=== PATIENT | male | born 1985 | race Caucasian/White ===

== ENCOUNTER 2020-04-30 14:23 | Emergency (ER) | payer OTHER, SELFPAY ==
[2020-04-30 14:41] VITALS: PULSE 61; RESP 16; TEMP 36.4; O2SAT 98; BMI 32.5
[2020-04-30 15:30] VITALS: BP 129/80; PULSE 54; RESP 18; TEMP 37.1; O2SAT 100
[2020-04-30 15:55] VITALS: BP 118/70; PULSE 58; RESP 16; TEMP 37.1; O2SAT 100
--- NOTE | 2020-04-30 15:57 | ED_ITS ---
HPI - Abdominal Pain General Chief Complaint: Abdominal Pain <Sierra Berrios NP - Last Filed: 04/30/20 17:03> Stated Complaint: ABD PAIN <Sierra Berrios NP - Last Filed: 04/30/20 17:03> Time Seen by Provider: 04/30/20 15:46 <Sierra Berrios NP - Last Filed: 04/30/20 17:03> Source: patient <Sierra Berrios NP - Last Filed: 04/30/20 17:03> Mode of arrival: ambulatory <Sierra Berrios NP - Last Filed: 04/30/20 17:03> Limitations: no limitations <Sierra Berrios NP - Last Filed: 04/30/20 17:03> History of Present Illness HPI narrative: 34-year-old male previously healthy here with intermittent abdominal pain for the last few weeks. Describes the pain as cramping. Intermittently associated with diarrhea. Occasionally he has an episode of bloody diarrhea. He tells me he may have several episodes of bloody diarrhea in a week but never more then one in a day. Today he had 3 episodes of bloody diarrhea filling the toilet bowl. No vomiting. No fevers, chills, body aches, urinary symptoms. No family history of IBD. No recent travel or sick contact. <Sierra Berrios NP - Last Filed: 04/30/20 17:03> MD elicited complaint: abdominal pain <ARAVIND Milner Last Filed: 04/30/20 17:03> Pertinent past history: none <ARAVIND Milner Last Filed: 04/30/20 17:03> Onset (ago): week(s) <ARAVIND Milner Last Filed: 04/30/20 17:03> Pain Consistency: intermittent <ARAVIND Milner Last Filed: 04/30/20 17:03> Location: diffuse <ARAVIND Milner Last Filed: 04/30/20 17:03> Severity: mild <ARAVIND Milner Last Filed: 04/30/20 17:03> Quality: cramping <Sierra Berrios NP - Last Filed: 04/30/20 17:03> Radiation: none <Sierra Berrios NP - Last Filed: 04/30/20 17:03> Migration to: no migration <Sierra Berrios NP - Last Filed: 04/30/20 17:03> Exacerbating factors: nothing <Sierra Berrios NP - Last Filed: 04/30/20 17:03> Relieving factors: nothing <Sierra Berrios NP - Last Filed: 04/30/20 17:03> Associated symptoms: denies other symptoms <Sierra Berrios NP - Last Filed: 04/30/20 17:03> Related Data Home Medications: Previous Rx's Medication Instructions Recorded dicyclomine 10 mg PO TID PRN #10 cap 04/30/20 <Sierra Berrios NP - Last Filed: 04/30/20 17:03> Allergies/Adverse Reactions: Allergies Allergy/AdvReac Type Severity Reaction Status Date / Time No Known Allergies Allergy Verified 04/30/20 14:43 <Sierra Berrios NP - Last Filed: 04/30/20 17:03> Review of Systems Review of Systems Yes all other systems are reviewed and are negative <Sierra Berrios NP - Last Filed: 04/30/20 17:03> Constitutional: Reports no additional constitutional complaints, Denies body ache(s), Denies chills, Denies fever(s), Denies headache(s) and Denies weakness <Sierra Berrios NP - Last Filed: 04/30/20 17:03> Eyes: Reports no additional eye complaints and Denies change in vision <Sierra Berrios NP - Last Filed: 04/30/20 17:03> Reports system reviewed and no additional complaints, except as documented, Denies dizziness, Denies headache(s), Denies nasal congestion, Denies nasal discharge and Denies neck pain <Sierra Berrios NP - Last Filed: 04/30/20 17:03> Cardiovascular: Reports no additional cardiovascular complaints, Denies chest pain, Denies leg edema and Denies dyspnea <Sierra Berrios NP - Last Filed: 04/30/20 17:03> Respiratory: Reports no additional respiratory complaints, Denies cough and Denies dyspnea <Sierra Berrios NP - Last Filed: 04/30/20 17:03> Gastrointestinal: Reports no additional gastrointestinal complaints, Reports abdominal pain, Reports hematochezia, Reports diarrhea, Denies nausea and Denies vomiting <Sierra Berrios NP - Last Filed: 04/30/20 17:03> Genitourinary: Denies urinary incontinence <Sierra Berrios NP - Last Filed: 04/30/20 1 7:03> Musculoskeletal: Reports no additional musculoskeletal complaints, Denies back pain, Denies arthralgias, Denies joint swelling, Denies neck pain, Denies numbness and Denies tingling <Sierra Berrios NP - Last Filed: 04/30/20 17:03> Skin/Breast: Reports system reviewed and no additional complaints, except as docu and Denies rash <Sierra Berrios NP - Last Filed: 04/30/20 17:03> Reports system reviewed and no additional complaints, except as documented, Denies Abnormal speech present, Denies dizziness, Denies h eadache(s), Denies numbness, Denies tingling and Denies weakness <Sierra Berrios NP - Last Filed: 04/30/20 17:03> Physical Exam Vital Signs: Vital Signs: Last Vital Signs Temp 98.7 F 04/30/20 15:55 Pulse 58 04/30/20 15:55 Resp 16 04/30/20 15:55 BP 118/70 04/30/20 15:55 Pulse Ox 100 04/30/20 15:55 Body Mass Index 32.5 <Sierra Berrios NP - Last Filed: 04/30/20 17:03> Vital Signs: Last Vital Signs Temp 98.7 F 04/30/20 15:55 Pulse 58 04/30/20 15:55 Resp 16 04/30/20 15:55 BP 118/70 04/30/20 15:55 Pulse Ox 100 04/30/20 15:55 Body Mass Index 32.5 <Ralf Zamudio MD - Last Filed: 04/30/20 17:12> Const: General: cooperative, healthy appearing, comfortable and no acute distress <Sierra Berrios NP - Last Filed: 04/30/20 17:03> Orientation/consciousness: patient oriented x3 <Sierra Berrios NP - Last Filed: 04/30/20 17:03> Limitations: no limitations <Sierra Berrios NP - Last Filed: 04/30/20 17:03> HENMT: Head: Yes normal to inspection <Sierra Berrios NP - Last Filed: 04/30/20 17:03> Ears: hearing grossly normal bilaterally <Sierra Berrios NP - Last Filed: 04/30/20 17:03> General nose exam: Normal external nose present <Sierra Berrios NP - Last Filed: 04/30/20 17:03> Face and sinus: Yes normal facial exam <Sierra Berrios NP - Last Filed: 04/30/20 17:03> Mouth: Normal oral and palatal mucosa present <Sierra Berrios NP - Last Filed: 04/30/20 17:03> Throat: Yes posterior oropharynx normal <Sierra Berrios NP - Last Filed: 04/30/20 17:03> Eyes: General: appearance normal, both eyes and all related structures <Sierra Berrios NP - Last Filed: 04/30/20 17:03> Pupils: Equal, round and reactive pupils present <Sierra Berrios NP - Last Filed: 04/30/20 17:03> Neck: Neck: Yes normal visual inspection <Sierra Berrios NP - Last Filed: 04/30/20 17:03> Chest: Chest palpation & inspection: normal inspection of the chest <Sierra Berrios NP - Last Filed: 04/30/20 17:03> Resp: Effort & Inspection: normal respiratory effort <Sierra Berrios NP - Last Filed: 04/30/20 17:03> Auscultation: clear to auscultation bilaterally <Sierra Berrios NP - Last Filed: 04/30/20 17:03> Cardio: Rate: regular rate <Sierra Berrios NP - Last Filed: 04/30/20 17:03> Rhythm: regular rhythm <Sierra Berrios NP - Last Filed: 04/30/20 17:03> Peripheral pulses: Peripheral pulses 2+ throughout <Sierra Berrios NP - Last Filed: 04/30/20 17:03> GI: 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: 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 <Sierra Berrios NP - Last Filed: 04/30/20 17:03> Inspection: Yes normal to inspection <Sierra Berrios NP - Last Filed: 04/30/20 17:03> Palpation (GI): Soft to palpation and nontender <Sierra Berrios NP - Last Filed: 04/30/20 17:03> Auscultation: normal bowel sounds <Sierra Berrios NP - Last Filed: 04/30/20 17:03> Rectal Exam - Male: Yes normal sphincter tone, Yes External hemorrhoid(s) presen t and Yes other (Only able to obtain minimal sample, mucousy brown stool) <Sierra Berrios NP - Last Filed: 04/30/20 17:03> Back/Spine/Pelvis: Thoracic/Lumbar Spine: thoracic and lumbar spine normal to inspection <Sierra Berrios NP - Last Filed: 04/30/20 17:03> Skin: General skin exam: no rashes or lesions noted <Sierra Berrios NP - Last Filed: 04/30/20 17:03> Neuro: General: patient oriented x3, no focal motor deficits and normal sensation to monofilament <Sierra Berrios NP - Last Filed: 04/30/20 17:03> Cranial nerves: Yes Equal, round and reactive pupils present <Sierra Berriso NP - Last Filed: 04/30/20 17:03> Cognition (Neuro): normal cognition <Sierra Berrios NP - Last Filed: 04/30/20 17:03> Speech: No Abnormal speech present <ARAVIND Milner Last Filed: 04/30/20 17:03> Gait exam (Neuro): Normal gait present <Sierra Berrios NP - Last Filed: 04/30/20 17:03> Motor exam (neuro): 5/5 motor strength present throughout <Sierra Berrios NP - Last Filed: 04/30/20 17:03> Extrem: General: Yes normal to inspection <Sierra Berrios NP - Last Filed: 04/30/20 17:03> Course Course Course Narrative: 34-year-old male previously healthy here with some intermittent abdominal pain described as cramping with associated diarrhea. Occasionally has blood in his stool. Today had 3 episodes. On arrival the patient has some mild diffuse tenderness with no focal tenderness. His rectal exam showed mucousy brown stool. Heme negative. +external hemorrhoids and tenderness. He is afebrile. Stable vital signs. Labs are unremarkable. Patient was monitored in the emergency department for 3 hours with no additional episodes of bloody diarrhea. His pain was improved with some p.o. Bentyl. We discussed him following up with GI outpatient. Reviewed worrisome signs and symptoms and when to return to the emergency department. Comfortable discharge home. <Sierra Berrios NP - Last Filed: 04/30/20 17:03> 1709: I, Dr. Ralf Zamudio, was available for consultation by the APC while the patient was in the emergency department. I reviewed the APC's findings, I was available to supervise the management of the patient, and I agree with the treatment and plan. Further, I agree with the controlled substance prescriptions(s) and/or order(s) as written by the APC, if any. <Ralf Zamudio MD - Last Filed: 04/30/20 17:12> MDM - Abdominal Pain MDM Narrative Medical decision making narrative: Less likely underlying IBD with only occasional symptoms, no weight loss, normal labs. Less likely infectious colitis with no leukocytosis, no fever. Less likely diverticulitis no focal pain no vomiting no fever <Sierra Berrios NP - Last Filed: 04/30/20 17:03> Lab Data Result diagrams: : 04/30/20 16:02 04/30/20 16:02 <Sierra Berrios, SSIS SSRS DEVELOPER - Last Filed: 04/30/20 17:03> Labs: Lab Results 04/30/20 04/30/20 04/30/20 Range/Units 15:59 15:59 16:02 WBC 7.6 (4.8-10.8) X10*3/uL RBC 4.69 (4.60-5.80) X10*6/uL Hgb 13.8 L (14.0-18.0) g/dl Hct 39.9 L (42-52) % MCV 85.1 (80-98) fL MCH 29.4 (27.0-33.0) pg MCHC 34.6 (31.0-36.0) g/dl RDW 12.0 (11.0-16.0) % Plt Count 254 (160-400) X10*3/uL MPV 9.6 (9.4-12.4) fL Immature Gran % (Auto) 0.3 (0.0-0.4) % Neut % (Auto) 64.4 (45-73) % Lymph % (Auto) 26.5 (20-40) % [place] % (Auto) 7.0 (2-11) % Eos % (Auto) 1.3 (0-4) % Baso % (Auto) 0.5 (0-2) % Lymph # (Auto) 2.0 (1.2-4.9) X10*3/uL [place] # (Auto) 0.5 (0.1-1.2) X10*3/uL Eos # (Auto) 0.1 (0.0-0.4) X10*3/uL Baso # (Auto) 0.0 (0.0-0.2) X10*3/uL Abs Immat Gran (auto) 0.02 (0.00-0.03) X10*3/uL Absolute Neuts (auto) 4.9 (2.0-8.3) X10*3/uL Absolute Nucleated RBC 0.000 (0.0-0.012) X10*3/uL Nucleated RBC % (auto) 0.0 (0.0-0.2) /100WBC PT (10.8-13.0) SEC INR (0.9-1.1) Sodium (135-145) mmol/L Potassium (3.3-5.1) mmol/l Chloride (96-108) mmol/L Carbon Dioxide (22-29) mmol/L Anion Gap (12-20) BUN (9-16) mg/dL Creatinine (0.5-1.4) mg/dL Estim Creat Clear Calc Estimated GFR Random Glucose (60-115) mg/dL Calcium (8.4-10.2) mg/dL Urine Color YELLOW Urine Appearance CLEAR Urine pH 6.0 (5.0-8.0) Ur Specific [place] 1.025 (1.005-1.025) Urine Protein NEG (NEG-TRACE) MG/DL Urine Glucose (UA) NEG (NEG) MG/DL Urine Ketones NEG (NEG) MG/DL Urine Blood NEG (NEG) Urine Nitrite NEG (NEG) Ur Leukocyte Esterase NEG (NEG) Stool Occult Blood NEG (NEG) 04/30/20 04/30/20 Range/Units 16:02 16:02 WBC (4.8-10.8) X10*3/uL RBC (4.60-5.80) X10*6/uL Hgb (14.0-18.0) g/dl Hct (42-52) % MCV (80-98) fL MCH (27.0-33.0) pg MCHC (31.0-36.0) g/dl RDW (11.0-16.0) % Plt Count (160-400) X10*3/uL MPV (9.4-12.4) fL Immature Gran % (Auto) (0.0-0.4) % Neut % (Auto) (45-73) % Lymph % (Auto) (20-40) % [place] % (Auto) (2-11) % Eos % (Auto) (0-4) % Baso % (Auto) (0-2) % Lymph # (Auto) (1.2-4.9) X10*3/uL [place] # (Auto) (0.1-1.2) X10*3/uL Eos # (Auto) (0.0-0.4) X10*3/uL Baso # (Auto) (0.0-0.2) X10*3/uL Abs Immat Gran (auto) (0.00-0.03) X10*3/uL Absolute Neuts (auto) (2.0-8.3) X10*3/uL Absolute Nucleated RBC (0.0-0.012) X10*3/uL Nucleated RBC % (auto) (0.0-0.2) /100WBC PT 12.9 (10.8-13.0) SEC INR 1.1 (0.9-1.1) Sodium 142 (135-145) mmol/L Potassium 3.6 (3.3-5.1) mmol/l Chloride 104 (96-108) mmol/L Carbon Dioxide 32 H (22-29) mmol/L Anion Gap 10 L (12-20) BUN 11 (9-16) mg/dL Creatinine 1.09 (0.5-1.4) mg/dL Estim Creat Clear Calc 121.7 Estimated GFR > 60 Random Glucose 91 (60-115) mg/dL Calcium 8.8 (8.4-10.2) mg/dL Urine Color Urine Appearance Urine pH (5.0-8.0) Ur Specific [place] (1.005-1.025) Urine Protein (NEG-TRACE) MG/DL Urine Glucose (UA) (NEG) MG/DL Urine Ketones (NEG) MG/DL Urine Blood (NEG) Urine Nitrite (NEG) Ur Leukocyte Esterase (NEG) Stool Occult Blood (NEG) <Sierra Berrios NP - Last Filed: 04/30/20 17:03> Lab Results 04/30/20 04/30/20 04/30/20 Range/Units 15:59 15:59 16:02 WBC 7.6 (4.8-10.8) X10*3/uL RBC 4.69 (4.60-5.80) X10*6/uL Hgb 13.8 L (14.0-18.0) g/dl Hct 39.9 L (42-52) % MCV 85.1 (80-98) fL MCH 29.4 (27.0-33.0) pg MCHC 34.6 (31.0-36.0) g/dl RDW 12.0 (11.0-16.0) % Plt Count 254 (160-400) X10*3/uL MPV 9.6 (9.4-12.4) fL Immature Gran % (Auto) 0.3 (0.0-0.4) % Neut % (Auto) 64.4 (45-73) % Lymph % (Auto) 26.5 (20-40) % [place] % (Auto) 7.0 (2-11) % Eos % (Auto) 1.3 (0-4) % Baso % (Auto) 0.5 (0-2) % Lymph # (Auto) 2.0 (1.2-4.9) X10*3/uL [place] # (Auto) 0.5 (0.1-1.2) X10*3/uL Eos # (Auto) 0.1 (0.0-0.4) X10*3/uL Baso # (Auto) 0.0 (0.0-0.2) X10*3/uL Abs Immat Gran (auto) 0.02 (0.00-0.03) X10*3/uL Absolute Neuts (auto) 4.9 (2.0-8.3) X10*3/uL Absolute Nucleated RBC 0.000 (0.0-0.012) X10*3/uL Nucleated RBC % (auto) 0.0 (0.0-0.2) /100WBC PT (10.8-13.0) SEC INR (0.9-1.1) Sodium (135-145) mmol/L Potassium (3.3-5.1) mmol/l Chloride (96-108) mmol/L Carbon Dioxide (22-29) mmol/L Anion Gap (12-20) BUN (9-16) mg/dL Creatinine (0.5-1.4) mg/dL Estim Creat Clear Calc Estimated GFR Random Glucose (60-115) mg/dL Calcium (8.4-10.2) mg/dL Urine Color YELLOW Urine Appearance CLEAR Urine pH 6.0 (5.0-8.0) Ur Specific [place] 1.025 (1.005-1.025) Urine Protein NEG (NEG-TRACE) MG/DL Urine Glucose (UA) NEG (NEG) MG/DL Urine Ketones NEG (NEG) MG/DL Urine Blood NEG (NEG) Urine Nitrite NEG (NEG) Ur Leukocyte Esterase NEG (NEG) Stool Occult Blood NEG (NEG) 04/30/20 04/30/20 Range/Units 16:02 16:02 WBC (4.8-10.8) X10*3/uL RBC (4.60-5.80) X10*6/uL Hgb (14.0-18.0) g/dl Hct (42-52) % MCV (80-98) fL MCH (27.0-33.0) pg MCHC (31.0-36.0) g/dl RDW (11.0-16.0) % Plt Count (160-400) X10*3/uL MPV (9.4-12.4) fL Immature Gran % (Auto) (0.0-0.4) % Neut % (Auto) (45-73) % Lymph % (Auto) (20-40) % [place] % (Auto) (2-11) % Eos % (Auto) (0-4) % Baso % (Auto) (0-2) % Lymph # (Auto) (1.2-4.9) X10*3/uL [place] # (Auto) (0.1-1.2) X10*3/uL Eos # (Auto) (0.0-0.4) X10*3/uL Baso # (Auto) (0.0-0.2) X10*3/uL Abs Immat Gran (auto) (0.00-0.03) X10*3/uL Absolute Neuts (auto) (2.0-8.3) X10*3/uL Absolute Nucleated RBC (0.0-0.012) X10*3/uL Nucleated RBC % (auto) (0.0-0.2) /100WBC PT 12.9 (10.8-13.0) SEC INR 1.1 (0.9-1.1) Sodium 142 (135-145) mmol/L Potassium 3.6 (3.3-5.1) mmol/l Chloride 104 (96-108) mmol/L Carbon Dioxide 32 H (22-29) mmol/L Anion Gap 10 L (12-20) BUN 11 (9-16) mg/dL Creatinine 1.09 (0.5-1.4) mg/dL Estim Creat Clear Calc 121.7 Estimated GFR > 60 Random Glucose 91 (60-115) mg/dL Calcium 8.8 (8.4-10.2) mg/dL Urine Color Urine Appearance Urine pH (5.0-8.0) Ur Specific [place] (1.005-1.025) Urine Protein (NEG-TRACE) MG/DL Urine Glucose (UA) (NEG) MG/DL Urine Ketones (NEG) MG/DL Urine Blood (NEG) Urine Nitrite (NEG) Ur Leukocyte Esterase (NEG) Stool Occult Blood (NEG) <Ralf Zamudio MD - Last Filed: 04/30/20 17:12> Discharge Plan Discharge Clinical Impression: Bright red rectal bleeding <Sierra Berrios NP - Last Filed: 04/30/20 17:03> Patient Disposition: Home, Self-Care <Sierra Berrios NP - Last Filed: 04/30/20 17:03> Instructions: Rectal Bleeding (ED) <Sierra Berrios NP - Last Filed: 04/30/20 17:03> Additional Instructions: Call GI tomorrow to get set up with an appointment Return for weakness, dizziness, vomiting blood. <Sierra Berrios NP - Last Filed: 04/30/20 17:03> Prescriptions: New dicyclomine 10 mg capsule 10 mg PO TID PRN (Reason: abdominal discomfort) Qty: 10 RF: 0 <Sierra Berrios NP - Last Filed: 04/30/20 17:03> Referrals: Xochitl Owens MD [Physician] - 2 days <Sierra Berrios NP - Last Filed: 04/30/20 17:03> Stand Alone Forms: Work/School Release <Sierra Berrios NP - Last Filed: 04/30/20 17:03> Discharge Date/Time: 04/30/20 17:07 <Sierra Berrios NP - Last Filed: 04/30/20 17:03> PMFSH Past Medical History Attestation statement: The following information was validated with the patient. <Sierra Berrios NP - Last Filed: 04/30/20 17:03> Source: nursing notes reviewed <Sierra Berrios NP - Last Filed: 04/30/20 17:03> Social History Social History: Social History Alcohol intake: current Alcohol intake frequency: a few times a week Smoking Status: Current every day smoker Use of substances other than those prescribed or required for medical reasons: Yes Substance Use Type: Marijuana Advance Directives: No Advance Directives Information Provided: Yes <Sierra Brerios NP - Last Filed: 04/30/20 17:03>
[2020-04-30] MEDS: Dicyclomine HCl 10 MG CAPSULE PO (16:11)
[2020-04-30 16:13] LABS: OBS Int Ctl Valid YES; OBS1 NEG (NEG)
[2020-04-30 16:13] LABS: Basophils Percent Auto 0.5 % (0-2); Eosinophils Absolute Auto 0.1 X10*3/uL (0.0-0.4); Eosinophils Percent Auto 1.3 % (0-4); Hematocrit 39.9 % (42-52); Hemoglobin 13.8 g/dl (14.0-18.0); Imm Gran Abs Auto 0.02 X10*3/uL (0.00-0.03); Imm Gran Pct Auto 0.3 % (0.0-0.4); Lymphocytes Percent Auto 26.5 % (20-40); Mean Corpuscular HGB Conc 34.6 g/dl (31.0-36.0); Mean Corpuscular Hemoglobin 29.4 pg (27.0-33.0); Mean Corpuscular Volume 85.1 fL (80-98); Mean Platelet Volume 9.6 fL (9.4-12.4); Monocytes Absolute Auto 0.5 X10*3/uL (0.1-1.2); Neutrophils Absolute Auto 4.9 X10*3/uL (2.0-8.3); Neutrophils Percent Auto 64.4 % (45-73); Platelet Count 254 X10*3/uL (160-400); Red Blood Count 4.69 X10*6/uL (4.60-5.80); White Blood Count 7.6 X10*3/uL (4.8-10.8)
[2020-04-30 16:14] LABS: MANUAL DIFF FLAG NO
[2020-04-30 16:16] LABS: Glucose Urine UA NEG (NEG); Leukocyte Esterase Urine NEG (NEG); Nitrite Urine NEG (NEG); Specific Gravity - Urine 1.025 (1.005-1.025); Urine Blood NEG (NEG); Urine Ketones NEG (NEG); Urine Protein NEG (NEG-TRACE)
[2020-04-30 16:18] LABS: Appearance Urine CLEAR; Color Urine YELLOW
[2020-04-30 16:19] LABS: INTERNATIONAL NORM RATIO 1.1 (0.9-1.1); Prothrombin Time 12.9 SEC (10.8-13.0)
[2020-04-30 16:49] LABS: Anion Gap 10 (12-20); Blood Urea Nitrogen 11 mg/dL (9-16); Calcium 8.8 mg/dL (8.4-10.2); Carbon Dioxide 32 mmol/L (22-29); Chloride 104 mmol/L (96-108); Creatinine Clr Calc Pharmacy 121.7; Estimated Glomerular Filt Rate > 60; Glucose Random 91 mg/dL (60-115); Potassium 3.6 mmol/l (3.3-5.1); Sodium 142 mmol/L (135-145)
--- NOTE | 2020-04-30 17:06 | PC.NURSE ---
reports improved pain
== END 2020-04-30 17:07 | disposition home or self-care (01) ==
PROVIDERS: Nurse Practitioner Family; Emergency Provider Emergency Medicine Emergency Medical Services
DX: K62.5 Hemorrhage of anus and rectum (principal); R10.9 Unspecified abdominal pain; F17.200 Nicotine dependence, unspecified, uncomplicated; Z71.6 Tobacco abuse counseling; F12.90 Cannabis use, unspecified, uncomplicated
CPT/HCPCS: 36415; 80048; 81003; 82272; 85025; 85610; 99283; 99284

== ENCOUNTER 2020-05-14 16:47 | Outpatient (REF) | payer OTHER, SELFPAY | END 2020-05-14 16:48 | disposition home or self-care (01) | LOC: HO.LAB 16:47 | PROVIDERS: Visit Provider Internal Medicine | DX: Z20.828 Contact with and (suspected) exposure to other viral communicable diseases (principal) | CPT/HCPCS: C9803; U0003 ==

== ENCOUNTER 2020-12-01 14:34 | Emergency (ER) | payer OTHER, SELFPAY ==
[2020-12-01 14:35] VITALS: BP 147/78; PULSE 74; RESP 18; TEMP 36.8; O2SAT 100; BMI 33.9
--- NOTE | 2020-12-01 15:19 | ED.HA ---
HPI - Headache General Chief Complaint: Headache Stated Complaint: headache Time Seen by Provider: 12/01/20 15:02 Source: patient Mode of arrival: ambulatory Limitations: no limitations History of Present Illness HPI Narrative: 35-year-old male with chronic headaches presents with headache that started on Thursday, states that this headache has been unrelieved by [id number] medications, Tylenol, Motrin, Aleve, and rest. To the longest headache he has ever had. Does not report any fevers, chills, chest pain or pressure, palpitations, loss of balance, changes in vision, changes in hearing, inability to chew or swallow, abdominal pain, abdominal distention, dysuria, hematuria, or edema. MD elicited complaint: migraine Onset (ago): day(s) (4) Onset description: gradually Location: diffuse Severity: severe Pain scale (0-10): 10 Quality & Timing: throbbing, pulsatile, constant and progressively worsening Exacerbating factors: exertion, light and noise Relieving factors: nothing Context: occurred at rest Associated symptoms: nausea, photophobia and sensitivity to sound Treatments prior to arrival: acetaminophen, ibuprofen and migraine medication Related Data Previous Rx's Medication Instructions Recorded dicyclomine 10 mg PO TID PRN #10 cap 04/30/20 [id number] 1 cap PO Q4-6H PRN #20 cap 12/01/20 [Fioricet] Allergies Allergy/AdvReac Type Severity Reaction Status Date / Time No Known Allergies Allergy Verified 04/30/20 14:43 Review of Systems Review of Systems: Constitutional: Positive migraine, No Fever, No Chills ENT/Mouth: No Ear Pain, No Hoarseness, No sore throat Eyes: No Eye Pain, No Swelling, No Redness, No Foreign Body Cardiovascular: No Chest Pain, No SOB Respiratory: No Cough, No Dyspnea Gastrointestinal: No Nausea, No Vomiting, No Diarrhea, No abdominal Pain Genitourinary: No Dysuria, No Hematuria Musculoskeletal: no joint pain, No Myalgias, No Joint Swelling Skin: No Skin lacerations, No rash Neuro: No Weakness, No Numbness, No Paresthesias, No Loss of Consciousness, No Dizziness, No Headache Psych: No Anxiety/Panic, No Depression Heme/Lymph: no easy bruising, no Lymphadenopathy Endocrine: No Polyuria, No Polydipsia Yes all other systems are reviewed and are negative [facility] Past Medical History Attestation statement: The following information was validated with the patient. Source: old records reviewed Social History Social History Alcohol intake: current Alcohol intake frequency: a few times a week Substance Use Type: Marijuana Advance Directives: No Advance Directives Information Provided: No Physical Exam Vital Signs: Vital Signs: Last Vital Signs Temp 97.7 F 12/01/20 15:51 Pulse 60 12/01/20 15:51 Resp 18 12/01/20 15:51 BP 115/65 12/01/20 15:51 Pulse Ox 96 12/01/20 15:51 Body Mass Index 33.9 Appearance: Alert. Oriented X3. No acute distress. Head: Normal external exam. Normocephalic. Atraumatic. No Funes signs noted. No raccoon eyes noted Eyes: PERRLA. EOMI. Conjunctiva and sclera normal. Eyelids normal. ENT: TM's Normal. Pharynx normal. Uvula midline. Moist mucous membranes. Neck: Normal inspection. Neck supple. No adenopathy. No meningeal signs. CVS: Normal heart rate and rhythm. Heart sound normal. No murmurs noted. Pulses equal to all extremities. Respiratory: No respiratory distress. Painless inspiration. lung sounds clear to auscultation all lobes. Chest nontender. No accessory muscle usage noted or decreased air movement noted. Abdomen: Soft and nontender. Bowel sounds normal in all 4 quadrants. No distention noted. No organomegaly noted. No visible injury noted. Back: No CVA tenderness. Full range of motion noted. Skin: Skin warm and dry. Normal skin color. Normal skin turgor. No rashes/lesions/lacerations noted. Extremities: No lower extremity edema. Extremities exhibit normal range of motion. Extremities nontender. Neuro: cranial nerves 2-12 intact, no focal neural deficits, strength 5/5 to all extremities, No motor deficit. No sensory deficit. Course Course Course Narrative: 35-year-old male presents with 4 days of migraine headache. Appears nontoxic, afebrile, no focal neural deficits, stroke scale 0. Plan of care is to resuscitate 1 L Toradol, antiemetics, and sumatriptan. Will give Fioricet as well. 4:35 p.m. patient states to feel little bit better. 4:50 p.m.. Patient states that he has 2/10 pain, is able to tolerate light and fluids. Plan of care to discharge home with prescription for Fioricet. He was advised to find a primary care physician as well as follow-up with Neurology. Patient verbalized understanding of and agrees plan of care discharge home MDM - Headache Differential Diagnosis Differential diagnosis: Likely migraine, tension headache and headache Medical Records Attestation: I reviewed the patient's medical records. Lab Data Attestation: I reviewed the patient's lab results. Discharge Plan Discharge Clinical Impression: Migraine Qualifiers: Migraine type: unspecified Status migrainosus presence: with status migrainosus Intractability: intractable Qualified Code(s): G43.911 - Migraine, unspecified, intractable, with status migrainosus Patient Disposition: Home, Self-Care Instructions: Migraine Headache (ED) Additional Instructions: you were evaluated for migraine headache. Please follow-up with Neurology. I provided a referral number for you. Please call and request an appointment at your convenience. I prescribed Fioricet, this medication helps with migraine headaches. Please follow the directions on the prescription label. Thank you for choosing this emergency department for evaluation. Please follow-up with primary care physician as needed. Return to the emergency department for any new, concerning, or worsening symptoms. Prescriptions: New [id number] [Fioricet] 50-300-40 mg capsule 1 cap PO Q4-6H PRN (Reason: pain) Qty: 20 RF: 0 No Action dicyclomine 10 mg capsule 10 mg PO TID PRN (Reason: abdominal discomfort) Qty: 10 RF: 0 Referrals: Jose Kang MD [Physician] - 2 days ( migraines)
[2020-12-01 15:51] VITALS: BP 115/65; PULSE 60; RESP 18; TEMP 36.5; O2SAT 96
[2020-12-01] MEDS: 0.9 % Sodium Chloride 1,000 ML 999 ML IVCONT (16:02)
[2020-12-01] MEDS: Butalb/Acetamin/Caff 50/325/40 TABLET 1 TAB PO (16:03)
[2020-12-01] MEDS: ondansetron HCL 4 MG/2 ML VIAL IVPUSH (16:03)
[2020-12-01] MEDS: Ketorolac Tromethamine 30 MG/ML VIAL IVPUSH (16:03)
== END 2020-12-01 17:25 | disposition home or self-care (01) ==
PROVIDERS: Emergency Provider Emergency Medicine
DX: G43.911 Migraine, unspecified, intractable, with status migrainosus (principal)
CPT/HCPCS: 96361; 96372; 96374; 96375; 99284; J1885; J2405; J3030

== ENCOUNTER 2021-01-23 12:11 | Outpatient (REF) | payer OTHER, SELFPAY | END 2021-01-23 12:12 | disposition home or self-care (01) | LOC: HO.LAB 12:11 | PROVIDERS: Visit Provider Internal Medicine | DX: Z20.822 Contact with and (suspected) exposure to COVID-19 (principal) | CPT/HCPCS: C9803; U0003; U0005 ==

== ENCOUNTER 2022-01-18 16:01 | Emergency (ER) | payer SELFPAY ==
--- NOTE | 2022-01-18 | ECG_ITS ---
Test Reason : chest pain Blood Pressure : / mmHG Vent. Rate : 054 BPM Atrial Rate : 054 BPM P-R Int : 120 ms QRS Dur : 100 ms QT Int : 440 ms P-R-T Axes : 023 -14 -09 degrees QTc Int : 417 ms Sinus bradycardia Otherwise normal ECG When compared with ECG of 31-OCT-2017 11:51, Heart rate has decreased Referred By: Generic ED Physician Electronically Signed By:AJAY GUZMAN
[2022-01-18 16:09] VITALS: BP 114/74; PULSE 50; RESP 18; TEMP 36.6; O2SAT 98; BMI 34.5
== END 2022-01-18 21:01 | disposition left against medical advice (07) ==
LOC: HO.ED 20:57
PROVIDERS: Emergency Provider Emergency Medicine
DX: R07.9 Chest pain, unspecified (principal); F12.90 Cannabis use, unspecified, uncomplicated
CPT/HCPCS: 93005; 99283

== ENCOUNTER 2022-04-08 09:05 | Emergency (ER) | payer SELFPAY ==
--- NOTE | ~2022-04-08 | XR_ITS ---
EXAMINATION: XR RIBS, LEFT, PA CHEST CLINICAL INFORMATION: Chest trauma with pain. COMPARISON: 10/31/2017 chest radiographs. TECHNIQUE: 3 views of the left ribs were obtained along with a PA view of the chest. A skin marker overlies the inferolateral left chest. FINDINGS: Lungs are clear. No consolidation, pneumothorax, or pleural effusion. The cardiomediastinal silhouette and pulmonary vasculature are normal. Osseous structures are unremarkable. Ribs are intact. No fractures are identified. XR/XR ribs LT min 3V w CXR1V IMPRESSION: Unremarkable examination.
[2022-04-08 09:08] VITALS: BP 128/81; PULSE 54; RESP 18; TEMP 36.6; O2SAT 100; BMI 34.5
--- NOTE | 2022-04-08 10:25 | ED.GENADULT ---
HPI - General Adult General Chief complaint: General Medical Stated complaint: L side rib pain Time Seen by Provider: 04/08/22 10:07 Source: patient Mode of arrival: ambulatory Limitations: no limitations History of Present Illness HPI narrative: 36 yo male healthy here with left chest wall pain after an injury which occurred on . Patient tells me that 1 month ago he was need while playing basketball and had some left chest wall pain. He seemed to improve with time. He was not evaluated for this. He reports on he was injured again while playing basketball. He tells me while he was up in the air he fell into the past couple hitting left side. Did not hit his head. No loss of consciousness. Since then left chest wall pain with no improvement with Motrin Tylenol home. No difficulty breathing, abdominal pain, vomiting, cough or fever. Related Data Previous Rx's Medication Instructions Recorded dicyclomine 10 mg capsule 10 mg PO TID PRN abdominal 04/30/20 discomfort #10 caps dwzxtuftsj-tomwgsbggfisw-jwlezpal 1 cap PO Q4-6H PRN pain #20 caps 12/01/20 50 mg-300 mg-40 mg capsule (Fioricet) ibuprofen 800 mg tablet 800 mg PO Q8H PRN pain #30 tabs 04/08/22 Allergies Allergy/AdvReac Type Severity Reaction Status Date / Time No Known Allergies Allergy Verified 04/30/20 14:43 Review of Systems Review of Systems: Yes all other systems are reviewed and are negative Constitutional: Constitutional: Reports no additional constitutional complaints, Denies body ache(s), Denies chills, Denies fever(s), Denies headache(s) and Denies weakness Eyes: Eyes: Reports no additional eye complaints and Denies change in vision ENT: Reports system reviewed and no additional complaints, except as documented, Denies dizziness, Denies headache(s), Denies nasal congestion, Denies nasal discharge and Denies neck pain Cardiovascular: Cardiovascular: Reports no additional cardiovascular complaints, Reports chest pain, Denies leg edema and Denies dyspnea Respiratory: Respiratory: Reports no additional respiratory complaints, Denies cough and Denies dyspnea Gastrointestinal: Gastrointestinal: Reports no additional gastrointestinal complaints, Denies abdominal pain, Denies diarrhea, Denies nausea and Denies vomiting Genitourinary: Genitourinary: Denies urinary incontinence Musculoskeletal: Musculoskeletal: Reports no additional musculoskeletal complaints, Denies back pain, Denies arthralgias, Denies joint swelling, Denies neck pain, Denies numbness and Denies tingling Integumentary/Breasts: Skin/Breast: Reports system reviewed and no additional complaints, except as docu and Denies rash Neurologic: Reports system reviewed and no additional complaints, except as documented, Denies dizziness, Denies headache(s), Denies numbness, Denies tingling and Denies weakness PMF Past Medical History Attestation statement: The following information was validated with the patient. Source: old records reviewed and nursing notes reviewed Social History Social History Alcohol intake: current Alcohol intake frequency: a few times a week Substance Use Type: Marijuana Advance Directives: No Advance Directives Information Provided: No Physical Exam ED Vital Signs: Vital Signs - 24 hr 04/08/22 09:08 Temperature 98 F Pulse Rate 54 Respiratory Rate 18 Blood Pressure 128/81 Pulse Oximetry 100 Oxygen Delivery Method Room Air BMI result Body Mass Index 34.5 Const General: cooperative, healthy appearing, comfortable and no acute distress Orientation/consciousness: patient oriented x3 Limitations: no limitations HENMT Head: Yes normal to inspection Ears: hearing grossly normal bilaterally Eyes General: appearance normal, both eyes and all related structures Pupils: Equal, round and reactive pupils present Neck Neck: Yes normal visual inspection and Yes full ROM Chest Chest palpation & inspection: normal inspection of the chest and tenderness (Tenderness the left chest wall with no ecchymosis or crepitus) Resp Effort & Inspection: normal respiratory effort Auscultation: clear to auscultation bilaterally Cardio Rate: regular rate Rhythm: regular rhythm Peripheral pulses: Peripheral pulses 2+ throughout GI Inspection: Yes normal to inspection Palpation (GI): Soft to palpation and nontender General: Yes no CVA tenderness Back/Spine/Pelvis Back: no CVA tenderness Thoracic/Lumbar Spine: thoracic and lumbar spine normal to inspection Skin General skin exam: no rashes or lesions noted Neuro General: patient oriented x3 and moves all extremities Cranial nerves: Yes Equal, round and reactive pupils present Cognition (Neuro): normal cognition Gait exam (Neuro): Normal gait present Extrem General: Yes normal to inspection Course Course Course Narrative: X-ray show no bony abnormality. Likely contusion. Will discharge patient home with recommendations for ice and ibuprofen. Reviewed worrisome signs and symptoms of when to return to the emergency room. Comfortable plan for discharge home. Medical Decision Making MDM Narrative Medical decision making narrative: 36-year-old male here with left chest wall pain after an injury which occurred . No obvious ecchymosis or crepitus. There is some tenderness over the left chest wall. Lungs are clear. Vitals are stable. Will check x-rays Contusion, fracture Medical Records Medical records reviewed: Yes I reviewed the patient's medical records. Imaging Data ribs/cxr : Attestation: I personally reviewed and interpreted this imaging study as follows: Radiologist's impression: [address] [address] XRay Report Signed Patient: Stefania Joyce MR#: [id number] : 06/13/2010 Acct:[id number] Age/Sex: 11 / F ADM Date: 04/08/22 Loc: HO.ED Attending Dr: Ordering Physician: Generic ED Physician Date of Service: 04/08/22 Procedure(s): XR wrist LT 2V Accession Number(s): [id number] cc: Generic ED Physician~ EXAMINATION: LEFT WRIST. LEFT FIRST DIGIT. CLINICAL INFORMATION: Pain after falling and swelling? COMPARISON: None? TECHNIQUE: 4 views of the left wrist. 3 views of the left first digit.? FINDINGS: Left thumb: No fracture, dislocation or destructive process. Left wrist: Carpal alignment preserved. Distal radius and ulna are intact. No fracture, dislocation or destructive process or joint effusion.? XR/XR wrist LT 2V IMPRESSION: Unremarkable studie Discharge Plan Discharge Clinical Impression: Contusion of rib on left side Patient Disposition: Home, Self-Care Instructions: Rib Contusion (ED) Additional Instructions: Ice, rest Prescriptions: New ibuprofen 800 mg tablet 800 mg PO Q8H PRN (Reason: pain) Qty: 30 0RF No Action dicyclomine 10 mg capsule 10 mg PO TID PRN (Reason: abdominal discomfort) Qty: 10 0RF hxzthrqinn-dqubrplkbksuw-wfnl [Fioricet] 50-300-40 mg capsule 1 cap PO Q4-6H PRN (Reason: pain) Qty: 20 0RF Referrals: Physician,None [Primary Care Provider] - Stand Alone Forms: Work/School Release
== END 2022-04-08 11:02 | disposition home or self-care (01) ==
PROVIDERS: Emergency Provider Emergency Medicine
DX: S20.212A Contusion of left front wall of thorax, initial encounter (principal); W50.0XXA Accidental hit or strike by another person, initial encounter; Y93.67 Activity, basketball; Y92.310 Basketball court as the place of occurrence of the external cause; Y99.9 Unspecified external cause status
CPT/HCPCS: 71101; 99283

== ENCOUNTER 2022-04-26 13:26 | Emergency (ER) | payer SELFPAY ==
--- NOTE | ~2022-04-26 | XR_ITS ---
EXAMINATION: XR FINGER, LEFT CLINICAL INFORMATION: Trauma. Sports injury. Fifth digit pain and swelling. COMPARISON: 07/21/2011 TECHNIQUE: 3 views of the left fifth digit. FINDINGS: There is an acute fracture of the distal phalanx of the left fifth digit with extension into the distal interphalangeal joint. There is dorsal retraction of the fracture fragment. XR/XR finger LT min 2V IMPRESSION: Acute left fifth digit distal phalangeal fracture with intra-articular extension.
[2022-04-26 13:34] VITALS: BP 140/70; PULSE 60; RESP 13; TEMP 36.6; O2SAT 98; BMI 33.9
--- NOTE | 2022-04-26 15:52 | ED_ITS ---
HPI - Extremity Problem General Chief complaint: Extremity Injury, Upper Stated complaint: swollen finger Time Seen by Provider: 04/26/22 15:18 Source: patient Mode of arrival: ambulatory Limitations: no limitations History of Present Illness HPI Narrative: Patient is a 36-year-old male right-hand dominant presenting to emergency department for evaluation of traumatic left 5th digit pain. States that he was playing basketball 1 week ago, and he jammed his finger in to the basketball. He has had ongoing pain, having some relief with ibuprofen. Denies numbness or tingling. Denies pain to the rest of the hand or wrist. Related Data Previous Rx's Medication Instructions Recorded dicyclomine 10 mg capsule 10 mg PO TID PRN abdominal 04/30/20 discomfort #10 caps sweqyfujrf-alhqikrsxuhwi-fyyzqzzu 1 cap PO Q4-6H PRN pain #20 caps 12/01/20 50 mg-300 mg-40 mg capsule (Fioricet) ibuprofen 800 mg tablet 800 mg PO Q8H PRN pain #30 tabs 04/08/22 Allergies Allergy/AdvReac Type Severity Reaction Status Date / Time No Known Allergies Allergy Verified 04/30/20 14:43 Review of Systems Review of Systems: Musculoskeletal: Positive finger pain Yes all other systems are reviewed and are negative [facility] Past Medical History Attestation statement: The following information was validated with the patient. Source: old records reviewed Social History Social History Alcohol intake: current Alcohol intake frequency: a few times a week Substance Use Type: Marijuana Advance Directives: No Advance Directives Information Provided: No Physical Exam Vital Signs: Vital Signs: Last Vital Signs Temp 98 F 04/26/22 13:34 Pulse 60 04/26/22 13:34 Resp 13 04/26/22 13:34 BP 140/70 H 04/26/22 13:34 Pulse Ox 98 04/26/22 13:34 O2 Del Method 04/26/22 13:34 BMI result Body Mass Index 33.9 Appearance: Alert.?Oriented to person, place and time. No acute distress.?Normal affect.?? Neck: Normal inspection.? Neck supple.?? CVS: Heart sounds normal. Normal heart rate and rhythm.? Pulses normal.?? Respiratory: No respiratory distress.? Lung sounds clear to auscultation bi laterally?? Abdomen: Soft and non-tender. Skin: Skin warm and dry.? Normal skin color.? Extremities: No lower extremity edema.? Left 5th digit with localized swelling and bruising distally, decreased flexion noted. Neuro: Moves all extremities spontaneously. Sensation intact bilaterally. No focal neuro deficits. Ambulates with normal steady gait. Course Course Course Narrative: Patient is a 36-year-old male presenting to the emergency department for evaluation of traumatic finger pain, he is right-hand dominant. XR reveals acute intra-articular fracture of the distal phalanx 5th digit on the left hand. Patient is able to hold the finger in full extension, is able to flex the finger, though ranges decreased it is painful. Cap refill <3 seconds. Finger splinted. Advised rest, ice, acetaminophen/ibuprofen, outpatient follow-up with Orthopedics. Reviewed worrisome signs and symptoms to return back to emergency department for. All questions answered. Patient discharged home in stable condition. MDM - Extremity (Nontraumatic) Medical Records Attestation: I reviewed the patient's medical records. Imaging Data XR hand: Radiologist's impression: XR/XR finger LT min 2V IMPRESSION: Acute left fifth digit distal phalangeal fracture with intra-articular extension. Discharge Plan Discharge Clinical Impression: Fracture of distal phalanx of finger of left hand Patient Disposition: Home, Self-Care Instructions: Finger Fracture (ED) Additional Instructions: You can take ibuprofen 200 mg, 3 tablets (600mg) every 6-8 hours as needed for pain, in addition to Tylenol 500 mg, 2 tablets (1,000mg) every 4-6 hours as needed for pain, but not to exceed 3 doses daily (3,000mg).? Contact orthopedic office to arrange for follow-up visit. Leave the splint in place until re-evaluated. Apply ice to the area for 10-15 minutes 3-4 times daily. Return to emergency department any new or worsening symptoms or concerns. Prescriptions: No Action dicyclomine 10 mg capsule 10 mg PO TID PRN (Reason: abdominal discomfort) Qty: 10 0RF mlptxwddyt-cgalwikenglrx-kwyq [Fioricet] 50-300-40 mg capsule 1 cap PO Q4-6H PRN (Reason: pain) Qty: 20 0RF ibuprofen 800 mg tablet 800 mg PO Q8H PRN (Reason: pain) Qty: 30 0RF Referrals: Ciara Feldman MD [Physician] - (Intra-articular Distal phalanx fracture)
== END 2022-04-26 16:30 | disposition home or self-care (01) ==
PROVIDERS: Emergency Provider Student in an Organized Health Care Education/Training Program
DX: S62.637A Displaced fracture of distal phalanx of left little finger, initial encounter for closed fracture (principal); W21.05XA Struck by basketball, initial encounter; Y93.67 Activity, basketball; Y92.310 Basketball court as the place of occurrence of the external cause; Y99.9 Unspecified external cause status
CPT/HCPCS: 29130; 73140; 99282; 99283

== ENCOUNTER 2022-05-07 08:10 | Outpatient (REF) | payer SELFPAY ==
--- NOTE | ~2022-05-07 | XR_ITS ---
EXAMINATION: XR HAND, LEFT CLINICAL INFORMATION: Left hand pain. COMPARISON: Most recent left finger radiographs dated 04/26/2022. TECHNIQUE: PA, lateral, oblique, and [place] views of the left hand. FINDINGS: Redemonstration of an oblique, mildly displaced fracture at the dorsal base of the 5th distal phalanx with the resultant fracture gap measuring up to 0.3 cm in AP dimension. Findings are similar anatomic alignment when compared to the prior examination. Surrounding soft tissue swelling. No new fracture or dislocation. No concerning lytic or blastic osseous lesion. XR/XR hand LT min 3V IMPRESSION: Fifth distal phalangeal fracture in unchanged anatomic alignment.
== END 2022-05-07 08:11 | disposition home or self-care (01) ==
LOC: HO.HOSX 08:10
PROVIDERS: Visit Provider Physician Assistant
DX: M20.012 Mallet finger of left finger(s) (principal)
CPT/HCPCS: 73130; 99202

== ENCOUNTER 2022-05-09 12:07 | Day surgery (SDC) | payer SELFPAY ==
--- NOTE | 2022-05-08 11:57 | P.CONAN_ITS ---
Documented by User: Alyssia Bray NP 05/08/22 11:58 HPI - Anesthesia Eval Consult details Narrative: 36yo M for Left Small Finger Fx CRPP vs ORIF PMFSH Active Problems Active Problems: All Active Problems (Updated 05/07/22 @ 15:13 by Cuong Huffman) Mallet finger of left hand (Acute) Past Medical History Medical History (Updated 05/09/22 @ 12:18 by Manda Soria RN) Anxiety Depression Surgical History Surgical History (Updated 05/09/22 @ 12:17 by Manda Soria RN) History of adenoidectomy Hx of tonsillectomy Social History Social History (Updated 05/07/22 @ 14:53 by Rut Dennis) Alcohol intake: current Alcohol intake frequency: a few times a week Patient Tobacco Use Status: Former Tobacco user Tobacco use type: Cigarette Use of substances other than those prescribed or required for medical reasons: Yes Substance Use Type: Marijuana Are you DNR?: No Advance Directives: No Advance Directives Information Provided: Yes Current occupational status: employed 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 Rate : 054 BPM ? ? Atrial Rate : 054 BPM ?? P-R Int : 120 ms? QRS Dur : 100 ms ? ? QT Int : 440 ms ? ? ? P-R-T Axes : 023 -14 -09 degrees ?? QTc Int : 417 ms ? Sinus bradycardia Otherwise normal ECG When compared with ECG of 31-OCT-2017 11:51, Heart rate has decreased Assessment and Plan Assessment Anesthesia Assessment: Chart Reviewed Documented by User: Prabhjot Castaneda MD 05/09/22 13:10 PMFSH Past Medical History Medical History (Updated 05/09/22 @ 12:18 by Manda Soria RN) Anxiety Depression Family History Family history of problems with anesthesia: No Surgical History Surgical History (Updated 05/09/22 @ 12:17 by Manda Soria RN) History of adenoidectomy Hx of tonsillectomy History of Problems with Anesthesia: No Social History Social History (Updated 05/07/22 @ 14:53 by Rut Dennis) Alcohol intake: current Alcohol intake frequency: a few times a week Patient Tobacco Use Status: Former Tobacco user Tobacco use type: Cigarette Use of substances other than those prescribed or required for medical reasons: Yes Substance Use Type: Marijuana Are you DNR?: No Advance Directives: No Advance Directives Information Provided: Yes Current occupational status: employed 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 Meds Allergies Allergy/AdvReac Type Severity Reaction Status Date / Time No Known Allergies Allergy Verified 05/07/22 14:51 Exam Airway Mallampati Class: II TM Dist: >3cm Neck ROM: Full Loose/Missing/Broken Teeth: No Heart: rrr Lungs: clear Assessment and Plan Final Anesthetic Review Family History of Problems with Anesthesia: No History of Problems with Anesthesia: No NPO: Yes ASA Class: I Final Preanesthetic Review: No Changes in Pt Med Stat, Meds/Allgs Chart Reviewed, Consent Obtained/Reviewed and Anes Risks/Benef Reviewed Patient Risk: Low Procedure Risk: Low Anesthetic Plan Anesthetic Plan: GA Disposition: Standard PACU
[2022-05-09] VITALS (8 sets, daily range): BP systolic 102–122; BP diastolic 61–78; PULSE 61–76; RESP 15–16; TEMP 36.1–36.7; O2SAT 92–97; BMI 34.7
--- NOTE | ~2022-05-09 | FL_ITS ---
EXAMINATION: XR FLUOROSCOPY WITH IMAGES CLINICAL INFORMATION: Fracture dorsal base fifth distal phalanx. COMPARISON: Radiographs left hand 05/07/2022 TECHNIQUE: Fluoroscopy Supervised By: Dr. Junior Contreras. Fluoroscopy Time: 25.5 seconds. Cumulative Dose: 0.5332 mGy. Images: 2. FINDINGS: The intra-articular fracture dorsal base fifth finger distal phalanx is reduced with 2 metallic orthopedic pins. Fracture fragments are in near-anatomic alignment. Hardware intact. No dislocation or destructive process. FL/FL guidance in OR IMPRESSION: Status post open reduction internal fixation fifth finger distal phalangeal fracture.
[2022-05-09] MEDS: Lactated Ringers 1,000 ML 100 ML IVCONT (12:54)
--- NOTE | 2022-05-09 14:33 | PM.OP ---
Brief Operative Note Date of Service: 05/09/22 Pre-op diagnosis: left SF mallet Post-op diagnosis: same Procedure: CRPP Left SF mallet Implants: none Surgeon: Junior Contreras MD Anesthesia: GETA and local Was an Crusher And Binder Operator used for this Procedure?: No Estimated blood loss (mL): 5 IV fluids (mL): 500 Pathology: none sent Condition: stable Disposition: PACU
[2022-05-09] MEDS: oxyCODONE HCl Immed Release 5 MG TABLET PO (15:31)
--- NOTE | 2022-05-16 09:50 | P.OP_ITS ---
Operative Note Operative Note Date of Service: 05/09/22 Narrative: Date of Service: 05/09/22 Pre-op diagnosis: left SF mallet Post-op diagnosis: same Procedure: CRPP Left SF mallet Implants: none Surgeon: Junior Contreras MD Anesthesia: GETA and local Was an Primary Class Teacher used for this Procedure?: No Estimated blood loss (mL): 5 IV fluids (mL): 500 Pathology: none sent Condition: stable Disposition: PACU Procedure in detail: Patient was brought to the operating room and placed supine on the surgical table. He was prepped and draped in standard sterile fashion and a time out was called to identify proper site, proper procedure and IV antibiotics per weight were administered. I began by flexing the digit and placing a 0.54 k wire through the distal most aspect of the torn extensor tendon and then directing the k-wire into the middle phalanx. Once the bony fragment was reduced I ext ended the digit and placed a k-wire from distal to proximal across the DIP. I was satisfied with the reduction using biplaner fluoro. The digit was then dressed and splinted an position of safety and a digital nerve block was performed using approximately 10 cc of 0.5% marcaine. The patient was then extubated and brought to the recovery room in stable condition. There were no known complications.
== END 2022-05-09 15:44 | disposition home or self-care (01) ==
PROVIDERS: Visit Provider Orthopaedic Surgery
PROC: (CPT 26432; principal; 2022-05-09 13:30)
DX: M20.012 Mallet finger of left finger(s) (principal); W23.0XXA Caught, crushed, jammed, or pinched between moving objects, initial encounter; Y93.67 Activity, basketball; Y92.9 Unspecified place or not applicable; Y99.8 Other external cause status; F32.A Depression, unspecified; F41.1 Generalized anxiety disorder; F12.90 Cannabis use, unspecified, uncomplicated; Z87.891 Personal history of nicotine dependence
CPT/HCPCS: 26432; J0690; J1100; J1885; J2250; J2405; J2795; J3010

== ENCOUNTER 2022-05-19 08:44 | Outpatient (REF) | payer SELFPAY ==
--- NOTE | ~2022-05-19 | XR_ITS ---
EXAMINATION: XR HAND, LEFT CLINICAL INFORMATION: Left hand. COMPARISON: 05/07/2022 TECHNIQUE: PA, lateral, and oblique views of the left hand. FINDINGS: Postoperative changes of the fifth DIP joint with 2 K wires affixing the distal fracture in anatomic alignment without evidence of hardware complication. XR/XR hand LT min 3V IMPRESSION: Postoperative changes of the fifth DIP joint in anatomic alignment without evidence of hardware complication.
== END 2022-05-19 08:45 | disposition home or self-care (01) ==
LOC: HO.HOSX 08:44
PROVIDERS: Visit Provider Physician Assistant
DX: M79.642 Pain in left hand (principal); M20.012 Mallet finger of left finger(s)
CPT/HCPCS: 29085; 73130

== ENCOUNTER 2022-06-09 18:10 | Outpatient (REF) | payer SELFPAY | END 2022-06-09 18:11 | disposition home or self-care (01) | LOC: HO.HOSX 18:10 | PROVIDERS: Visit Provider Physician Assistant | DX: Z13.89 Encounter for screening for other disorder (principal) ==